=== PATIENT | male | born 1970 | race African-American/Black ===

== ENCOUNTER 2020-06-17 11:09 | Emergency (ER) | payer MEDICAID ==
--- NOTE | 2020-06-17 11:50 | ER Document Report ---
ED Medical Screen (RME) - General Chief Complaint: Abdominal Pain Stated Complaint: EPIGASTRIC PAIN Time Seen by Provider: 06/17/20 11:47 Notes: HPI: 50-year-old male presenting with intermittent epigastric right upper quadrant pain with nausea no vomiting over the last week. No definitive association with eating or drinking. No fevers PHYSICAL EXAMINATION: Patient is tender in the epigastric and specifically in the right upper quadrant region on palpation. Last ate approximately an hour ago when he ate a banana. He will be n.p.o. from this point I have greeted and performed a rapid initial assessment of this patient. A comprehensive ED assessment and evaluation of the patient, analysis of test results and completion of medical decision making process will be conducted by an additional ED providers. Please note that clinical decision making for this patient was made during the 2019 pandemic of novel coronavirus which caused a significant strain on the healthcare system including at this particular facility. Criteria for admission discharge and level of care decisions as well as treatment decisions have necessarily changed - Related Data Allergies/Adverse Reactions: No Known Allergies Allergy (Unverified 06/17/20 11:40) Past Medical History - Social History Chew tobacco use (# tins/day): No Frequency of alcohol use: None Drug Abuse: None Physical Exam - Vital signs Vitals: Temp Pulse Resp BP Pulse Ox 98.5 F 59 L 18 160/85 H 98 06/17/20 11:06/17/20 11:06/17/20 11:06/17/20 11:06/17/20 11:29 Course - Vital Signs Vital signs: Temp Pulse Resp BP Pulse Ox 98.5 F 59 L 18 160/85 H 98 06/17/20 11:29 06/17/20 11:29 06/17/20 11:06/17/20 11:06/17/20 11:29
[2020-06-17 12:38] LABS: ABSOLUTE BASOPHILS # (AUTO) 0.1 10^3/uL (0.0-0.2); ABSOLUTE EOSINOPHILS # (AUTO) 0.1 10^3/uL (0.0-0.6); ABSOLUTE LYMPHOCYTES (AUTO) 2.3 10^3/uL (0.5-4.7); ABSOLUTE MONOCYTES (AUTO) 0.4 10^3/uL (0.1-1.4); ABSOLUTE NEUT (AUTO) 2.3 10^3/uL (1.7-8.2); EOSINOPHILS % (AUTO) 1.6 % (0-6); HEMATOCRIT 38.8 % (37.9-51.0); HEMOGLOBIN 12.6 g/dL (13.5-17.0); LYMPHOCYTES % (AUTO) 45.2 % (13-45); MEAN CORPUSCULAR HEMOGLOBIN 25.3 pg (27.0-33.4); MEAN CORPUSCULAR HGB CONC 32.6 g/dL (32.0-36.0); MEAN CORPUSCULAR VOLUME 78 fl (80-97); MONOCYTES % (AUTO) 7.3 % (3-13); PLATELET COUNT 239 10^3/uL (150-450); RED BLOOD COUNT 4.99 10^6/uL (4.35-5.55); RED CELL DISTRIBUTION WIDTH 15.7 % (11.5-14.0); SEGMENTED NEUTROPHILS % (AUTO) 43.9 % (42-78); TOTAL CELLS COUNTED % (AUTO) 100 %; WHITE BLOOD COUNT 5.2 10^3/uL (4.0-10.5)
[2020-06-17 12:41] LABS: APPEARANCE,URINE CLEAR; BILIRUBIN,URINE NEGATIVE (NEGATIVE); COLOR,URINE YELLOW; GLUCOSE, URINE NEGATIVE (NEGATIVE); KETONES,URINE NEGATIVE (NEGATIVE); LEUKOCYTE ESTERASE,URINE NEGATIVE (NEGATIVE); NITRITE,URINE NEGATIVE (NEGATIVE); PROTEIN,URINE NEGATIVE (NEGATIVE); URINE SPECIFIC GRAVITY 1.013
--- NOTE | 2020-06-17 12:48 | RADIOLOGY REPORT (SQ) ---
EXAM DESCRIPTION: U/S ABDOMEN LIMITED W/O DOP IMAGES COMPLETED DATE/TIME: 06/17/2020 12:23 pm REASON FOR STUDY: ruq pain COMPARISON: None. TECHNIQUE: Dynamic and static grayscale images acquired of the abdomen and recorded on PACS. Additio nal selected color Doppler and spectral images recorded. LIMITATIONS: Midline bowel gas FINDINGS: PANCREAS: Midline pancreas unremarkable LIVER: No masses. Echotexture normal. LIVER VASCULATURE: Normal directional flow of the main portal vein and hepatic veins. GALLBLADDER: No stones. Normal wall thickness. No pericholecystic fluid. ULTRASOUND-DETECTED RAND'S SIGN: Negative. INTRAHEPATIC DUCTS AND COMMON DUCT: CBD and intrahepatic ducts normal caliber. No filling defects. INFERIOR VENA CAVA: Normal flow. AORTA: Not well-visualized RIGHT KIDNEY: Normal size. Normal echogenicity. No solid or suspicious masses. No hydronephrosis. No calcifications. PERITONEAL AND RIGHT PLEURAL SPACE: No ascites or effusions. OTHER: No other significant findings. IMPRESSION: NORMAL RIGHT UPPER QUADRANT ULTRASOUND. TECHNICAL DOCUMENTATION: JOB ID: [id number] 2010 [employer]- All Rights Reserved Reading location - IP/workstation name: [id number]
[2020-06-17 13:07] LABS: ALBUMIN 4.7 g/dL (3.5-5.0); ALKALINE PHOSPHATASE 48 U/L (38-126); ANION GAP 5 (5-19); ASPARTATE AMINO TRANSFERASE 18 U/L (17-59); BILIRUBIN,DIRECT 0.2 mg/dL (0.0-0.4); BILIRUBIN,TOTAL 0.4 mg/dL (0.2-1.3); BLOOD UREA NITROGEN 8 mg/dL (7-20); CALCIUM 9.8 mg/dL (8.4-10.2); CARBON DIOXIDE 31 mmol/L (22-30); CHLORIDE 103 mmol/L (98-107); GLUCOSE 93 mg/dL (75-110); POTASSIUM 4.5 mmol/L (3.6-5.0); TOTAL PROTEIN 7.6 g/dL (6.3-8.2)
--- NOTE | 2020-06-17 13:27 | ER Document Report ---
ED General - General Chief Complaint: Abdominal Pain Stated Complaint: EPIGASTRIC PAIN Time Seen by Provider: 06/17/20 11:47 Primary Care Provider: CESAR MCPHERSON MD [ACTIVE STAFF] - Follow up in 1 week - HPI Notes: 50-year-old male presents to the emergency room today for complaints of right upper quadrant abdominal pain, right lower quadrant abdominal pain, left flank pain, nausea that is occurred intermittently over the 8 days or so. Patient reports pain is sharp, throbbing and stabbing. Denies any falls or traumas. Denies pain is worse after eating. He did eat a banana today without any issu es. He states his pain is more in his right upper quadrant, has a dull ache in his right lower quadrant. Last bowel movement was yesterday, no melena. Denies any fevers or chills. Denies any history of a nephrolithiasis. Reports he has had issues with his gallbladder in the past, but he recently moved to [place] 8 months ago and has not had any primary care follow-up or gastroenterology follow-up. Patient reports his last endoscopic exam was over 7 years ago. Has not tried any kwge-fhd-yxdrehy medications for his pain. Denies any fevers or chills, chest pain, shortness of breath, vomiting, testicular pain, pain with urination, lower back pain headaches, vision changes. Reports pain is 3 out of 5. - Related Data Allergies/Adverse Reactions: No Known Allergies Allergy (Unverified 06/17/20 11:40) Past Medical History - General Information source: Patient - Social History Smoking Status: Never Smoker Chew tobacco use (# tins/day): No Frequency of alcohol use: None Drug Abuse: None Family History: Reviewed & Not Pertinent Review of Systems - Review of Systems Constitutional: No symptoms reported EENT: No symptoms reported Cardiovascular: No symptoms reported Respiratory: No symptoms reported Gastrointestinal: See HPI Genitourinary: No symptoms reported Male Genitourinary: No symptoms reported Musculoskeletal: No symptoms reported Skin: No symptoms reported Hematologic/Lymphatic: No symptoms reported Neurological/Psychological: No symptoms reported Physical Exam - Vital signs Vitals: Temp Pulse Resp BP Pulse Ox 98.5 F 59 L 18 160/85 H 98 06/17/20 11:29 06/17/20 11:29 06/17/20 11:29 06/17/20 11:29 06/17/20 11:29 - Notes Notes: MEDICATIONS: I agree with the patient medications as charted by the RN. ALLERGIES: I agree with the allergies as charted by the RN. PAST MEDICAL HISTORY/PAST SURGICAL HISTORY: Reviewed and agree as charted by RN. SOCIAL HISTORY: Reviewed and agree as charted by RN. FAMILY HISTORY: No significant familial comorbid conditions directly related to patient complaint EXAM: Reviewed vital signs as charted by RN. PHYSICAL EXAMINATION:reviewed vital signs by RN GENERAL: Well-appearing, well-nourished and in no acute distress. HEAD: Atraumatic, normocephalic. EYES: Pupils equal round and reactive to light, extraocular movements intact, sclera anicteric, conjunctiva are normal. ENT: Nares patent, oropharynx clear without exudates. Moist mucous membranes. NECK: Normal range of motion, supple without lymphadenopathy LUNGS: Breath sounds clear to auscultation bilaterally and equal. No wheezes rales or rhonchi. HEART: Regular rate and rhythm without murmurs ABDOMEN: Soft, nondistended abdomen. Right upper quadrant tenderness on palpation, right lower quadrant tenderness on palpation,negative McBurney sign. No guarding, no rebound. No masses appreciated. Left CVA tenderness appreciated, no right CVA tenderness appreciated. Musculoskeletal: Normal range of motion, no pitting or edema. No cyanosis. NEUROLOGICAL: Cranial nerves grossly intact. Normal speech, normal gait. Normal sensory, motor exams PSYCH: Normal mood, normal affect. SKIN: Warm, Dry, normal turgor, no rashes or lesions noted. Course - Re-evaluation Re-evalutation: 06/17/20 19:39 Afebrile, vital stable no distress. Nurses notes reviewed. CBC negative for leukocytosis or anemia, CMP negative for hepatic or renal dysfunction, lipase is normal. Urinalysis unremarkable. Ultrasound of right upper quadrant does not yield any abnormal findings per radiology which was ordered in triage and resulted. 1430- Due to patient lower quadrant abdominal pain as well as left flank pain, I did order a CT abdomen pelvis with IV and oral contrast. CT of abdomen pelvis with IV and oral contrast was essentially unremarkable, appendix normal it did show some thickening of the bladder wall which could be indicative of cystitis. 1630-Appendix was not visualized on CT and I did reexamination of the patient and he does not have any right lower quadrant abdominal pain on pa lpation. I did discuss to patient that he does need to have a repeat abdominal examination done in 12 hours to assess for evaluation of abdominal pain. Advised he can return to the emergency room or go to local urgent care for abdominal reevaluationI did order a Chlamydia gonorrhea through the urine to assess for STDs. Patient states he was recently placed on antibiotics due to take approximately 2 weeks ago. I will prophylactically patient patient on 5 days of Keflex twice daily. DC is pending. Patient denies any history of STDs. I did give patient a referral to gastroenterology as well as placing him on omeprazole 20 mg twice daily. I discussed with him that he does need to follow a low-fat diet, not eat 2 hours prior to sleeping. Patient states that he has had a history of gallbladder issues in the past as well as acid reflux, this was after talking with patient for a long period of time, he was not forthcoming with this on initial interview. Discussed with him the importance of taking omeprazole daily. Also I will prescribe patient Zofran for any nausea that he may incur. Discussed calling the manager program office this upcoming week to schedule an appointment. Patient was agreeable with this plan of care. After performing a Medical Screening Examination, I estimate there is LOW risk for ACUTE APPENDICITIS, BOWEL OBSTRUCTION, ACUTE CHOLECYSTITIS, PERFORATED DIVERTICULITIS, INCARCERATED HERNIA, PANCREATITIS, TESTICULAR TORSION or PERFORATED ULCER, thus I consider the discharge disposition reasonable. Also, there is no evidence or peritonitis, sepsis, or toxicity. I have reevaluated this patient multiple times and no significant life threatening changes are noted. The patient and I have discussed the diagnosis and risks, and we agree with discharging home with close follow-up with the understanding that symptoms and presentations can change. We also discussed returning to the Emergency Department immediately if new or worsening symptoms occur. We have discussed the symptoms which are most concerning (e.g., bloody stool, fever, changing or wors ening pain, intractable vomiting - standard verbal up date) that necessitate immediate return. - Vital Signs Vital signs: Temp Pulse Resp BP Pulse Ox 98 F 88 18 119/80 98 06/17/20 18:45 06/17/20 18:45 06/17/20 18:45 06/17/20 18:45 06/17/20 18:45 - Laboratory Results Result Diagrams: 06/17/20 12:21 06/17/20 12:21 Laboratory Results Interpreted: 06/17/20 06/17/20 06/17/20 12:21 12:21 12:21 Hgb 12.6 L MCV 78 L MCH 25.3 L RDW 15.7 H Lymph % (Auto) 45.2 H Carbon Dioxide 31 H Urine Urobilinogen 2.0 H Critical Laboratory Results Reviewed: No Critical Results - Radiology Results Critical Radiology Results Reviewed: No Critical Results Discharge - Discharge Clinical Impression: Cystitis, RUQ abdominal pain Condition: Stable Disposition: HOME, SELF-CARE Instructions: Abdominal Pain ([facility]), Antinausea Medication ([facility]), Low-Fat Diet ([facility]) Additional Instructions: Observation for Appendicitis At this time, the abdominal pain does not seem to be appendicitis. Our next "test" will be passage of time. If you have early appendicitis, signs will appear to help us make the diagnosis. Most of the time, the pain goes away. In these cases, the pain is usually due to a virus in the lymph glands near the appendix, or due to an ovarian cyst or ovulation. Unless the pain is gone, you should come back for a recheck. This is usually done in 8 to 12 hours. Be sure you understand your follow-up instructions. Come back immediately if: (1) the pain becomes much more severe and sharply increases with movement or coughing, (2) vomiting becomes frequent, (3) there is blood in the vomit, urine, or bowel movements, (4) there are shaking chills or fever, or (5) the abdomen becomes more distended or swollen. CT of your abdomen pelvis with IV and oral contrast was negative it did show that you possibly have something called cystitis, which could be infection in your bladder. I was unable to visualize your appendix this is why it is important that you return in 12 hours for a another abdominal examination in the emergency room. We are checking for STD's such chlamydia and gonorrhea if this is positive we will treat you with a standard of care. Until results are known it is advised that you refrain from any sexual intercourse. this does not mean that you have an STD, this is just a routine evaluation. however I am going to treat you with Keflex which is an antibiotic to treat for a cystitis. I will prescribe you a medication called omeprazole, which is an acid lorry weigher for your right upper quadrant epigastric abdominal pain. It is advised that you follow a low-fat diet, this means staying away from any greasy foods, any high fatty foods. I did give you a referral to a manager program as well as a primary care provider. I also did prescribe you a medication called Zofran, which is an antinausea medication, you can take this every 4-6 hours as needed. Please be sure to take your antibiotics with food as this can cause upset stomach. You also can eat yogurt a day to prevent any loose stool. Please return to the emergency room if you experience any worsening abdominal pain, fever, vomiting etc. Return immediately for any new or worsening symptoms. Follow up with primary care provider, call tomorrow to make followup appointment. Prescriptions: Cephalexin Monohydrate [Keflex 500 mg Capsule] 500 mg PO QID #20 capsule Omeprazole 20 mg PO BID #40 capsule. Ondansetron [Zofran Odt 4 mg Tablet] 1 - 2 tab PO Q4H PRN #15 tab.rapdis PRN Reason: For Nausea/Vomiting Forms: Return to Work Referrals: CESAR MCPHERSON MD [ACTIVE STAFF] - Follow up in 1 week
[2020-06-17] MEDS ORDERED: ONDANSETRON HCL INJ/PF 4 MG/2 ML SDV IV ONE (14:00)
[2020-06-17] MEDS ORDERED: MORPHINE SULFATE 10 MG/ML INJ IV ONE (14:00)
[2020-06-17] MEDS ORDERED: NORMAL SALINE 1000 ML 1,000 ML IV ONE (14:00)
--- NOTE | 2020-06-17 17:02 | RADIOLOGY REPORT (SQ) ---
EXAM DESCRIPTION: CT ABD/PELVIS WITH IV ORAL IMAGES COMPLETED DATE/TIME: 06/17/2020 1:47 pm REASON FOR STUDY: RUQ, RLQ and L flank pain intermittently x1w +naus COMPARISON: Right upper quadrant ultrasound same date. TECHNIQUE: CT scan of the abdomen and pelvis performed using helical scanning technique with dynamic intravenous contrast injection. Oral contrast was also given. Images reviewed with lung, soft tissu e, and bone windows. Reconstructed coronal and sagittal MPR images reviewed. Delayed images for evalu ation of the urinary system also acquired. All images stored on PACS. All CT scanners at this facility use dose modulation, iterative reconstruction, and/or weight based d osing when appropriate to reduce radiation dose to as low as reasonably achievable (ALARA). [facility]: Dose Right [facility]: CareDose [facility]: Dose Right [facility]: Teradose 4D [facility]: Akippa CONTRAST TYPE AND DOSE: contrast/concentration: Isovue 350.00 mmol/ml; Total Contrast Delivered: 83. 0 ml; Total Saline Delivered: 69.0 ml RENAL FUNCTION: Creatinine 1.14 RADIATION DOSE: CT Rad equipment meets quality standard of care and radiation dose reduction techniq ues were employed. CTDIvol: NaN - NaN mGy. DLP: 0 mGy-cm.. LIMITATIONS: None. FINDINGS: LOWER CHEST: Lung bases are clear. LIVER: Few tiny hypodense liver lesions are too small to adequately characterize, but likely represen t benign cysts. No suspicious liver lesion identified. SPLEEN: Normal size. No focal lesions. PANCREAS: No masses. No significant calcifications. No adjacent inflammation or peripancreatic fluid collections. Pancreatic duct not dilated. GALLBLADDER: No identified stones by CT criteria. No inflammatory changes to suggest cholecystitis. ADRENAL GLANDS: No significant masses or asymmetry. RIGHT KIDNEY AND URETER: No solid masses. No significant calcifications. No hydronephrosis or hyd roureter. LEFT KIDNEY AND URETER: No solid masses. No significant calcifications. No hydronephrosis or hydr oureter. AORTA AND VESSELS: No aneurysm. No dissection. Renal arteries, SMA, celiac without stenosis. RETROPERITONEUM: No retroperitoneal adenopathy, hemorrhage or masses. BOWEL AND PERITONEAL CAVITY: No masses or inflammatory changes. No free fluid or peritoneal masses. APPENDIX: Not visualized. PELVIS: Mild bladder wall thickening. No mass. ABDOMINAL WALL: No masses. No hernias. BONES: No significant or acute findings. OTHER: No other significant finding. IMPRESSION: 1. Mild urinary bladder wall thickening could be due to underdistention or mild cystiti s. Correlate with urinalysis. 2. No other acute abnormality on CT of the abdomen and pelvis. TECHNICAL DOCUMENTATION: JOB ID: [id number] Quality ID # [id number]: Final reports with documentation of one or more dose reduction techniques (e.g., Au tomated exposure control, adjustment of the mA and/or kV according to patient size, use of iterative reconstruction technique) 2010 [employer] All Rights Reserved Reading location - IP/workstation name: [email or web address]
[2020-06-17 18:46] VITALS: BP 119/80
[2020-06-17 20:20] LABS: CHLAM PCR NOT DETECTED (NOT DETECT)
== END 2020-06-17 18:44 | disposition home or self-care (01) ==
LOC: ER 11:09
DX: N30.90 Cystitis, unspecified without hematuria (principal); R10.11 Right upper quadrant pain; R10.13 Epigastric pain; R11.0 Nausea
CPT/HCPCS: 99285; 96361; 96374; 96375; 36415; 83690; 85025; 80053; 81001; 87491; 87591; 76705; 74177; J2270; J2405; J7030

== ENCOUNTER 2020-06-23 10:23 | Emergency (ER) | payer MEDICAID ==
[2020-06-23 10:36] VITALS: BP 144/84
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
[2020-06-23 11:08] LABS: ABSOLUTE BASOPHILS # (AUTO) 0.1 10^3/uL (0.0-0.2); ABSOLUTE EOSINOPHILS # (AUTO) 0.1 10^3/uL (0.0-0.6); ABSOLUTE LYMPHOCYTES (AUTO) 1.8 10^3/uL (0.5-4.7); ABSOLUTE MONOCYTES (AUTO) 0.4 10^3/uL (0.1-1.4); ABSOLUTE NEUT (AUTO) 2.6 10^3/uL (1.7-8.2); BASOPHILS % (AUTO) 1.3 % (0-2); EOSINOPHILS % (AUTO) 1.7 % (0-6); HEMOGLOBIN 11.8 g/dL (13.5-17.0); LYMPHOCYTES % (AUTO) 36.8 % (13-45); MEAN CORPUSCULAR HEMOGLOBIN 25.3 pg (27.0-33.4); MEAN CORPUSCULAR HGB CONC 32.8 g/dL (32.0-36.0); MEAN CORPUSCULAR VOLUME 77 fl (80-97); MONOCYTES % (AUTO) 7.5 % (3-13); PLATELET COUNT 237 10^3/uL (150-450); RED BLOOD COUNT 4.67 10^6/uL (4.35-5.55); RED CELL DISTRIBUTION WIDTH 15.8 % (11.5-14.0); SEGMENTED NEUTROPHILS % (AUTO) 52.7 % (42-78); TOTAL CELLS COUNTED % (AUTO) 100 %
[2020-06-23 11:43] LABS: ALBUMIN 4.2 g/dL (3.5-5.0); ALKALINE PHOSPHATASE 44 U/L (38-126); ANION GAP 5 (5-19); ASPARTATE AMINO TRANSFERASE 16 U/L (17-59); BILIRUBIN,DIRECT 0.2 mg/dL (0.0-0.4); BILIRUBIN,TOTAL 0.3 mg/dL (0.2-1.3); BLOOD UREA NITROGEN 8 mg/dL (7-20); CALCIUM 9.5 mg/dL (8.4-10.2); CARBON DIOXIDE 29 mmol/L (22-30); CHLORIDE 106 mmol/L (98-107); GLUCOSE 87 mg/dL (75-110); POTASSIUM 4.3 mmol/L (3.6-5.0); TOTAL PROTEIN 6.9 g/dL (6.3-8.2)
[2020-06-23 12:05] LABS: APPEARANCE,URINE CLEAR; BILIRUBIN,URINE NEGATIVE (NEGATIVE); COLOR,URINE YELLOW; GLUCOSE, URINE NEGATIVE (NEGATIVE); KETONES,URINE NEGATIVE (NEGATIVE); LEUKOCYTE ESTERASE,URINE NEGATIVE (NEGATIVE); NITRITE,URINE NEGATIVE (NEGATIVE); PROTEIN,URINE NEGATIVE (NEGATIVE); URINE SPECIFIC GRAVITY 1.006; UROBILINOGEN,URINE NEGATIVE mg/dL (<2.0)
--- NOTE | 2020-06-23 13:16 | RADIOLOGY REPORT (SQ) ---
EXAM DESCRIPTION: ACUTE ABDOMEN SERIES IMAGES COMPLETED DATE/TIME: 06/23/2020 1:06 pm REASON FOR STUDY: ruq/r flank pain COMPARISON: None. NUMBER OF VIEWS: Three views. TECHNIQUE: Frontal chest, supine abdomen and upright/decubitus abdomen radiographic images acquired. LIMITATIONS: None. FINDINGS: CHEST: Lungs clear of infiltrates. FREE AIR: None. No abnormal gas collections. BOWEL GAS PATTERN: Nonobstructive pattern. No dilated loops or air fluid levels. CALCIFICATIONS: No suspicious calcifications. HARDWARE: None in the abdomen. SOFT TISSUES: No gross mass or suggestion of organomegaly. BONES: No acute fracture. No worrisome bone lesions. OTHER: No other significant finding. IMPRESSION: NO RADIOGRAPHIC EVIDENCE FOR ACUTE ABDOMINAL DISEASE. TECHNICAL DOCUMENTATION: JOB ID: [id number] 2010 [employer]- All Rights Reserved Reading location - IP/workstation name: [email or web address]
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
== END 2020-06-23 13:57 | disposition home or self-care (01) ==
LOC: ER 10:23
DX: R10.11 Right upper quadrant pain (principal); R10.811 Right upper quadrant abdominal tenderness; R10.9 Unspecified abdominal pain; R19.7 Diarrhea, unspecified; K92.1 Melena
CPT/HCPCS: 36415; 74022; 80053; 81001; 83690; 85025; 99284